=== PATIENT | male | born 1980 | race Caucasian/White ===

== ENCOUNTER 2025-02-01 07:04 | Day surgery (SDC) | payer OTHER ==
[2025-01-30 10:05] VITALS: BMI 32.5
[2025-02-01] MEDS ORDERED: AFRIN NASAL MIST 15 ML BOT ONE (07:41)
[2025-02-01] MEDS ORDERED: Oxymetazoline HCl 0.05% (15 ML) ONE (07:55)
[2025-02-01] MEDS ORDERED: Bacitracin 1 PK ONE (08:19)
[2025-02-01] MEDS ORDERED: Lidocaine 1% w/Epinephrine 1:200K 30 ML VIAL ONE (08:20)
[2025-02-01] MEDS ORDERED: Rocuronium Bromide 10 MG/ML (10ML VIAL) ONE ×2 (08:46→08:48)
[2025-02-01] MEDS ORDERED: PROPOFOL 20 ML ONE (08:46)
[2025-02-01] MEDS ORDERED: Ondansetron PF 4 MG/2 ML Vial ONE (09:05)
[2025-02-01] MEDS ORDERED: SUGAMMADEX SODIUM 200 MG/2 ML VIAL ONE (09:06)
[2025-02-01] MEDS ORDERED: Acetaminophen 500 MG TAB ONE (10:49)
== END 2025-02-01 11:55 | disposition home or self-care (01) ==
LOC: CSHSDC 07:04
PROVIDERS: ATTEND Otolaryngology Plastic Surgery within the Head & Neck
PROC: 09SM4ZZ Reposition Nasal Septum, Percutaneous Endoscopic Approach (ICD-10-PCS; principal; 2025-02-01)
PROC: 095L8ZZ Destruction of Nasal Turbinate, Via Natural or Artificial Opening Endoscopic (ICD-10-PCS; principal; 2025-02-01)
DX: J34.2 Deviated nasal septum (principal); J34.3 Hypertrophy of nasal turbinates; J34.821 External nasal valve collapse; J31.0 Chronic rhinitis; E78.00 Pure hypercholesterolemia, unspecified; Z85.47 Personal history of malignant neoplasm of testis; Z79.899 Other long term (current) drug therapy
CPT/HCPCS: J1100; J2704; J3010